=== PATIENT | female | born 1975 | race Caucasian/White ===

== ENCOUNTER → 2016-09-09 | Outpatient (CLI) | payer BC ==
[~2016-09-09] MED LIST: ASPIRIN 32325 MG/TAB PO; LOVENOX 8080 MG/0.8 SQ; MOTRIN 600600 MG/TAB PO; PERCOCET 325 MG1 TA2 PO; TYLENOL 325MG325 MG PO; XARELTO15 MG PO
== END ==
LOC: COL.VAS 07:38
DX: I82.512 Chronic embolism and thrombosis of left femoral vein (principal); I82.532 Chronic embolism and thrombosis of left popliteal vein; M79.605 Pain in left leg; M79.89 Other specified soft tissue disorders

== ENCOUNTER → 2017-12-08 | Outpatient (CLI) | payer BC | LOC: COL.VAS 13:14 | DX: I82.532 Chronic embolism and thrombosis of left popliteal vein (principal) ==

== ENCOUNTER 2018-05-10 12:09 | Day surgery (SDC) | payer BC ==
[2018-05-10] VITALS (9 sets, daily range): BP systolic 110–125; BP diastolic 57–70; PULSE 70–88; TEMP 97.6–98.4
[~2018-05-10] VITALS: Ht 160 cm; Wt 89.0 kg
[2018-05-10] MEDS ORDERED: EFFEXOR-XR150 MG PO (12:38)
[2018-05-10] MEDS ORDERED: NEURONTIN100 MG/CAP PO (12:38)
[2018-05-10] MEDS ORDERED: DESYREL 100MG100 MG PO (12:39)
[2018-05-10] MEDS ORDERED: MULTI VITAMINS1 TAB PO (12:39)
[2018-05-10 13:06] LABS: HEMATOCRIT 41.7 % (37.0-47.0); HEMOGLOBIN 13.5 g/dl (12.5-16.0); MEAN CELL VOLUME 96 fl (80.0-100.0); MEAN CORPUSCULAR HEMOGLOBIN 31 pg (27.0-31.0); MEAN CORPUSCULAR HGB CONC 32 g/dl (33.0-37.0); MEAN PLATELET VOLUME 10.4 fl (7.4-10.4); PLATELET COUNT 263 K/mm3 (130-400); RED BLOOD COUNT 4.35 M/mm3 (4.10-5.30)
[2018-05-10 13:07] LABS: PROTHROMBIN TIME 11.3 SECONDS (9.7-12.8)
[2018-05-10 13:11] LABS: ALBUMIN 4.2 gm/dL (3.5-5.0); BILIRUBIN,TOTAL 0.5 mg/dL (0.0-1.0); CALCIUM 8.6 mg/dL (8.4-10.2); CREATININE, serum 0.78 mg/dL (0.52-1.25); POTASSIUM 3.6 mmol/L (3.4-5.0); TOTAL PROTEIN 7.6 gm/dL (6.4-8.2)
== END 2018-05-10 19:30 | disposition home or self-care (01) ==
LOC: SDCO 12:09
PROVIDERS: Surgery
DX: K80.12 Calculus of gallbladder with acute and chronic cholecystitis without obstruction (principal); R94.5 Abnormal results of liver function studies; D68.59 Other primary thrombophilia; G62.9 Polyneuropathy, unspecified; Z90.710 Acquired absence of both cervix and uterus; Z88.8 Allergy status to other drugs, medicaments and biological substances; Z79.01 Long term (current) use of anticoagulants; Z86.718 Personal history of other venous thrombosis and embolism; Z86.711 Personal history of pulmonary embolism; Z83.3 Family history of diabetes mellitus; Z80.3 Family history of malignant neoplasm of breast; Z82.49 Family history of ischemic heart disease and other diseases of the circulatory system
CPT/HCPCS: J0690; J1100; J1650; J1885; J2405; J2704; J2710; J3010; J7120; Q9967

== ENCOUNTER → 2019-04-26 | Outpatient (CLI) | payer BC ==
[~2019-04-26] MED LIST changes: +DESYREL 100MG100 MG PO; +EFFEXOR-XR150 MG PO; +MULTI VITAMINS1 TAB PO; +NEURONTIN100 MG/CAP PO
[2019-04-26 15:27] LABS: BASO % 0.5 % (0.0-2.0); EOS % 0.1 % (0-4.0); GRAN # 4.5 (1.4-6.5); HEMATOCRIT 41.2 % (37.0-47.0); HEMOGLOBIN 13.2 g/dl (12.5-16.0); LYMPH # 2.3 (1.2-3.4); LYMPH % 31.1 % (20.0-51.0); MEAN CELL VOLUME 95 fl (80.0-100.0); MEAN CORPUSCULAR HEMOGLOBIN 30 pg (27.0-31.0); MEAN CORPUSCULAR HGB CONC 32 g/dl (33.0-37.0); MEAN PLATELET VOLUME 9.9 fl (7.4-10.4); MONO # 0.5 (0.1-0.6); MONO % 7.2 % (1.7-9.3); PLATELET COUNT 286 K/mm3 (130-400); RED BLOOD COUNT 4.35 M/mm3 (4.10-5.30); REDCELL DISTRIBUTION WIDTH-CV 13.9 % (11.5-14.5)
[2019-04-26 15:36] LABS: ALANINE AMINOTRANSFERASE 13 U/L (9-52); ALKALINE PHOSPHATASE 73 U/L (50-136); ANION GAP 8 mmol/L (7-16); AST,SGOT 22 U/L (15-37); BILIRUBIN,TOTAL 0.2 mg/dL (0.0-1.0); BLOOD UREA NITROGEN 13 mg/dL (7-17); CALCIUM 9.6 mg/dL (8.4-10.2); CARBON DIOXIDE 30 mmol/L (22-30); CHLORIDE 99 mmol/L (98-107); CREATININE, serum 0.72 (0.52-1.25); GLUCOSE 96 mg/dL (74-106); POTASSIUM 3.9 mmol/L (3.4-5.0); SODIUM 136 mmol/L (137-145)
[2019-04-26 15:52] LABS: TROPONIN-I < 0.012 ng/mL (0.000-0.035)
[2019-04-26 16:07] LABS: THYROID STIMULATING HORMONE 0.877 uIU/mL (0.465-4.680)
== END ==
LOC: COL.RAD 14:27
PROVIDERS: Internal Medicine
DX: R07.89 Other chest pain (principal)
CPT/HCPCS: Q9967

== ENCOUNTER → 2019-06-21 | Outpatient (CLI) | payer BC | LOC: MC.RAD 04-05 15:00 | DX: Z12.31 Encounter for screening mammogram for malignant neoplasm of breast (principal); N64.89 Other specified disorders of breast ==

== ENCOUNTER → 2019-06-28 | Outpatient (CLI) | payer BC | LOC: MC.RAD 06-27 09:15 | DX: N64.89 Other specified disorders of breast (principal); N63.21 Unspecified lump in the left breast, upper outer quadrant | CPT/HCPCS: G0279 ==

== ENCOUNTER 2019-08-05 22:40 | Emergency (ER) | payer BC ==
[~2019-08-05] VITALS: Ht 160 cm; Wt 86.4 kg
[2019-08-05 22:43] VITALS: TEMP 96.4
[2019-08-05] MEDS ORDERED: XANAX 0.5MG0.5 MG PO (22:50)
[2019-08-05 23:40] LABS: BASO # 0.1 (0.0-0.2); BASO % 0.4 % (0.0-2.0); EOS % 0.3 % (0-4.0); GRAN # 9.8 (1.4-6.5); GRAN % 71.1 % (42.2-75.2); HEMATOCRIT 43.8 % (37.0-47.0); HEMOGLOBIN 14.7 g/dl (12.5-16.0); LYMPH % 21.9 % (20.0-51.0); MEAN CELL VOLUME 91 fl (80.0-100.0); MEAN CORPUSCULAR HEMOGLOBIN 30 pg (27.0-31.0); MEAN CORPUSCULAR HGB CONC 34 g/dl (33.0-37.0); MEAN PLATELET VOLUME 10.3 fl (7.4-10.4); MONO # 0.8 (0.1-0.6); PLATELET COUNT 264 K/mm3 (130-400); RED BLOOD COUNT 4.84 M/mm3 (4.10-5.30); REDCELL DISTRIBUTION WIDTH-CV 13.5 % (11.5-14.5)
[2019-08-06 00:14] LABS: ALANINE AMINOTRANSFERASE 39 U/L (9-52); ALBUMIN 4.3 gm/dL (3.5-5.0); ALKALINE PHOSPHATASE 88 U/L (50-136); ANION GAP 9 mmol/L (7-16); AST,SGOT 90 U/L (15-37); BILIRUBIN,TOTAL 0.5 mg/dL (0.0-1.0); BLOOD UREA NITROGEN 15 mg/dL (7-17); C-REACTIVE PROTEIN 1.2 mg/dL (0.0-0.9); CALCIUM 8.9 mg/dL (8.4-10.2); CARBON DIOXIDE 25 mmol/L (22-30); CHLORIDE 106 mmol/L (98-107); GLUCOSE 111 mg/dL (74-106); LIPASE 59 U/L (23-300); POTASSIUM 3.4 mmol/L (3.4-5.0); SODIUM 140 mmol/L (137-145); TOTAL PROTEIN 7.3 gm/dL (6.4-8.2)
[2019-08-06 00:17] LABS: INR 1.4 (0.8-3.0); PROTHROMBIN TIME 16.2 SECONDS (9.7-12.8)
[2019-08-06 00:20] LABS: PARTIAL THROMBOPLASTIN TIME 33.1 SECONDS (26.0-37.0)
[2019-08-06 00:23] LABS: TROPONIN-I < 0.012 ng/mL (0.000-0.035)
[2019-08-06 01:30] LABS: COLLECTION METHOD CLEAN CATCH
[2019-08-06 01:35] LABS: MUCOUS Present /lpf; PH 5 (5-8); URINE APPEARANCE Clear; URINE BACTERIA None Seen /hpf; URINE BILIRUBIN Negative (NEGATIVE); URINE BLOOD Negative (NEGATIVE); URINE COLOR Yellow; URINE GLUCOSE Negative (NEGATIVE); URINE KETONE Trace (NEGATIVE); URINE LEUKOCYTE ESTERASE Negative (NEGATIVE); URINE NITRATE Negative (NEGATIVE); URINE PROTEIN(semi-quant) Negative (NEGATIVE); URINE RBC 0-2 /hpf; URINE UROBILINOGEN Negative (NEGATIVE)
[2019-08-06 03:30] LABS: ALANINE AMINOTRANSFERASE 77 U/L (9-52); ALBUMIN 3.8 gm/dL (3.5-5.0); ALKALINE PHOSPHATASE 84 U/L (50-136); AST,SGOT 119 U/L (15-37); LIPASE 45 U/L (23-300); TOTAL PROTEIN 6.5 gm/dL (6.4-8.2)
[2019-08-06 03:39] LABS: BILIRUBIN UNCONJUGATED 0.2 mg/dL (0.0-1.1); BILIRUBIN,TOTAL 0.3 mg/dL (0.0-1.0)
[2019-08-06 03:42] LABS: TROPONIN-I 3 HR POST INITIAL < 0.012 ng/mL (0.000-0.034)
[2019-08-06] MEDS ORDERED: PROTONIX 40MG T40 MG PO (04:07)
[2019-08-06 04:15] VITALS: BP 115/67; PULSE 69
== END 2019-08-06 04:26 | disposition home or self-care (01) ==
LOC: COL.ER 22:40
PROVIDERS: Emergency Medicine
DX: K29.70 Gastritis, unspecified, without bleeding (principal); R07.89 Other chest pain; Z79.01 Long term (current) use of anticoagulants; Z90.89 Acquired absence of other organs; Z90.710 Acquired absence of both cervix and uterus; Z86.711 Personal history of pulmonary embolism; Z86.718 Personal history of other venous thrombosis and embolism
CPT/HCPCS: J1170; J2405; J7030; Q9967

== ENCOUNTER → 2019-08-18 | Outpatient (CLI) | payer BC ==
[~2019-08-18] MED LIST changes: +PROTONIX 40MG T40 MG PO; +XANAX 0.5MG0.5 MG PO
== END ==
LOC: COL.RAD 09:21
DX: R74.8 Abnormal levels of other serum enzymes (principal); Z90.49 Acquired absence of other specified parts of digestive tract

== ENCOUNTER → 2019-10-20 | Outpatient (CLI) | payer BC | LOC: BHSO 12:49 | DX: F41.0 Panic disorder [episodic paroxysmal anxiety] (principal) ==

== ENCOUNTER → 2019-11-10 | Outpatient (CLI) | payer BC | LOC: MC.RAD 12:52 | DX: N64.4 Mastodynia (principal) ==

== ENCOUNTER → 2019-12-18 | Outpatient (CLI) | payer BC | LOC: COL.VAS 10:26 | DX: M79.89 Other specified soft tissue disorders (principal); Z86.718 Personal history of other venous thrombosis and embolism ==

== ENCOUNTER 2020-02-13 20:08 | Emergency (ER) | payer SELFPAY ==
[2020-02-13] MEDS ORDERED: LASIX 20MG TABL20 MG PO (20:40)
[2020-02-13] MEDS ORDERED: AMOXICILLIN 8751 TAB PO (20:42)
[2020-02-13 20:54] VITALS: BP 126/78; PULSE 66; TEMP 97
== END 2020-02-13 20:56 | disposition home or self-care (01) ==
LOC: COL.ER 20:08
DX: S61.411A Laceration without foreign body of right hand, initial encounter (principal); F17.210 Nicotine dependence, cigarettes, uncomplicated; Z23 Encounter for immunization; W54.0XXA Bitten by dog, initial encounter

== ENCOUNTER → 2020-07-16 | Outpatient (CLI) | payer OTHER ==
[~2020-07-16] MED LIST changes: +AMOXICILLIN 8751 TAB PO; +LASIX 20MG TABL20 MG PO
== END ==
LOC: COL.RAD 11:55
DX: R06.00 Dyspnea, unspecified (principal); Z86.711 Personal history of pulmonary embolism
CPT/HCPCS: Q9967

== ENCOUNTER 2021-01-02 14:50 | Outpatient (RCR) | payer OTHER | END 2021-03-27 | disposition still patient (30) | LOC: WSOH | DX: S39.012A Strain of muscle, fascia and tendon of lower back, initial encounter (principal); E54 Ascorbic acid deficiency; Y99.0 Civilian activity done for income or pay; Z98.890 Other specified postprocedural states ==

== ENCOUNTER → 2021-10-06 | Outpatient (CLI) | payer OTHER | LOC: COL.RAD 06:59 | DX: D68.59 Other primary thrombophilia (principal); G44.52 New daily persistent headache (NDPH) | CPT/HCPCS: Q9967 ==

== ENCOUNTER → 2021-12-29 | Outpatient (CLI) | payer OTHER | LOC: MC.RAD 08:41 | DX: Z12.31 Encounter for screening mammogram for malignant neoplasm of breast (principal); N64.89 Other specified disorders of breast ==

== ENCOUNTER → 2021-12-31 | Outpatient (CLI) | payer OTHER | LOC: MC.RAD 14:00 | DX: N64.89 Other specified disorders of breast (principal) ==

== ENCOUNTER → 2022-04-03 | Outpatient (CLI) | payer OTHER | LOC: MC.RAD 07:30 | DX: N64.4 Mastodynia (principal) ==

== ENCOUNTER 2023-05-18 11:54 | Inpatient (IN) | payer BC, OTHER ==
[~2023-05-18] VITALS: Ht 236.2 cm; Wt 91.7 kg
[~2023-05-18 11:54] MED LIST changes: -XARELTO15 MG PO; +XARELTO20 MG PO
[2023-06-09] VITALS (16 sets, daily range): BP systolic 97–137; BP diastolic 52–74; PULSE 80–102; TEMP 97.5–98.9
[2023-06-09] MEDS ORDERED: PRISTIQ 50 MG T50 MG PO (06:01)
--- NOTE | 2023-06-09 06:20 | NUR ---
The patient ambulated back to [place] [address] indendently using a steady gait and appeared to tolerate the activity well. Vital signs obtained. Consent signed. Assessment completed. Home medications reconcilled. 18G IV started in left wrist with one stick, LR infusing without difficulty. Call light is within reach. Warm blanket provided. at bedside. Denies any further needs at this time.
--- NOTE | 2023-06-09 12:00 | NUR ---
Patient up from surgery at 1035 to room 324. Patient drowsy, arousable upon arrival. Vital signs monitored postop. C/O abdominal pain upon waking up, PRNs given as ordered. Weaning oxygen, now on 1L via NC. in the room with patient. Tolerating water, educated patient on diet. Lazaro in place, draining clear yellow urine. Bed in lowest position with call light within reach. Denies further needs at this time.
--- NOTE | 2023-06-09 13:38 | NUR ---
Initial visit; Patient thanked Ground Transportation Operator for looking in on her though declined Spiritual Care.
--- NOTE | 2023-06-09 17:19 | NUR ---
Patient tolerating food well, no nausea/vomiting/increased pain after eating. Diet advanced. Able to ambulate to the recliner, standby assist, steady on feet. Sitting up in recliner. Pain medication provided for abdominal pain. Call light within reach, pt denies further needs at this time.
--- NOTE | 2023-06-09 21:00 | NUR ---
PT IN BED, PREVIOUSLY UP IN CHAIR. PT DROWSY, REPORTS PAIN TO ABD 2/10. ABD WITH LAP SITES X4 WITH BANDAIDS, SM TRANSVERSE INCISION WITH GAUZE, D/I. HAS IVF TO LT HAND INFUSING WITHOUT PROBLEM. HAS PÉREZ TO BSD WITH YELLOW URINE. DENIES PASSING GAS, BOWEL SOUNDS NOTED.
[2023-06-10] VITALS (12 sets, daily range): BP systolic 97–125; BP diastolic 56–68; PULSE 69–93; TEMP 97.5–98.8
--- NOTE | 2023-06-10 03:23 | NUR ---
PT REPORTS PAIN TO ABD 6/10, OXYCODONE 5MG PO GIVEN.
--- NOTE | 2023-06-10 04:20 | NUR ---
Pt awake, wanting hearn removed. Emptied 850cc from bag, deflated balloon and removed catheter without problem.
--- NOTE | 2023-06-10 06:00 | NUR ---
PT HAS BEEN UP IN ROOM, INT TO LT HAND. HAS VOIDED SINCE PÉREZ REMOVED.
[2023-06-10 06:12] LABS: CALCIUM 8.6 mg/dL (8.4-10.2); CREATININE, serum 0.73 mg/dL (0.57-1.11); POTASSIUM 4.1 mmol/L (3.5-4.5)
[2023-06-10 06:23] LABS: BASO % 0.2 % (0.0-2.0); GRAN # 8.5 K/mm3 (1.4-6.5); GRAN % 75.6 % (42.2-75.2); HEMATOCRIT 37.8 % (37.0-47.0); HEMOGLOBIN 12.2 g/dl (12.5-16.0); LYMPH # 1.8 K/mm3 (1.2-3.4); LYMPH % 16.4 % (20.0-51.0); MEAN CELL VOLUME 93 fl (80.0-100.0); MEAN CORPUSCULAR HEMOGLOBIN 30 pg (27-31); MEAN CORPUSCULAR HGB CONC 32 g/dl (33.0-37.0); MONO # 0.8 K/mm3 (0.1-0.6); MONO % 7.4 % (1.7-9.3); PLATELET COUNT 252 K/mm3 (130-400); RED BLOOD COUNT 4.05 M/mm3 (4.10-5.30); REDCELL DISTRIBUTION WIDTH-CV 14.2 % (11.5-14.5)
--- NOTE | 2023-06-10 08:36 | NUR ---
PATIENT ALERT AND ORIENTED X4. VSS. PATIENT HERE FOR RIGHT SUMA HEMICOLECTOMY. LAPS X4, CDI WITH BANDAIDS. ONE LOW TRANSVERSE CDI WITH GAUZE/TAPE. IV TO LEFT HAND INT, FLUSHES WELL. PATIENT DENIES ANY PAIN AT THIS TIME. TOLERATED BREAKFAST. PATIENT REPORTS ONE LG BM THIS MORNING. PATIENT RESTING IN BED, CALL LIGHT IN REACH. NO FURTHER NEEDS AT THIS TIME.
--- NOTE | 2023-06-10 09:54 | NUR ---
dairy feed worker met with patient to discuss discharge planning. Patient lives in [place] with her Erick [phone]. Patient sees Dr. Gulshan Rockwell for primary care and obtains medications from [facility] with no difficulties. Patient does not use any medical equipment and is independent with ADLs. Patient does not have DPOA-HC and was not interested in creating one at this time. Patient legal next of kin is her Erick. Another point of contact is her daughter Peg [phone]. Discharge Plan: Home
--- NOTE | 2023-06-10 19:45 | NUR ---
Assessment complete. A&Ox4. Denies pain/nausea/shortness of breath. VS stable. Up to shower this shift. Bandaids removed from lap sites due to being wet-edges well approximated-no drainage noted. Low transverse incision clean/dry/intact-no drainage noted. IV to left hand flushes without difficulty. Plan of care discussed for this shift to include meds/pain control/calling for questions/concerns. Verbalizes understanding. Call light in reach. Will monitor.
--- NOTE | 2023-06-10 21:30 | NUR ---
Patient called stating she was very nauseas and in a lot of pain. This nurse to room and noted patient to be pale and diaphoretic sitting on toilet. States she thought she needed to have a BM but is just passing gas. Vitals taken- BP 107/62, pulse 76, resp 18, SpO2 98% on RA and temp 97.4. Zofran given per order. Patient back up to bathroom but only passed gas. States her pain level is 8/10 on pain scale to abdomen. Oxycodone given at this time. Patient states she is starting to feel better that she had a hot flash and that is what started this. Encouraged to call for any questions/concerns. Call light in reach. Will monitor.
--- NOTE | 2023-06-10 22:20 | NUR ---
Patient resting in bed comfortably. States she feesl a lot better and is no longer nauseated. Denies current needs. Call light in reach. Will monitor.
[2023-06-11 01:00] VITALS: BP_SYST 122
[2023-06-11 03:59] VITALS: BP 134/69; PULSE 74; TEMP 98.4
[2023-06-11 04:02] VITALS: BP_SYST 134
--- NOTE | 2023-06-11 04:22 | NUR ---
Patient up to bathroom at this time. C/O nausea/pain. Rating pain 9/10 on pain scale-described as intermittent sharp pains. Oxycodone given per dr dickey.
--- NOTE | 2023-06-11 06:04 | NUR ---
Patient rested off and on this shift. Received zofran/oxycodone x2 for pain and nausea. Patient rated pain 9/10 on pain scale and after discussing thinks nausea came due to level of pain. Encouraged to call when pain starts to increase rather than waiting. Verbalizes understanding. INT to left hand flushes without difficulty. Denies current needs. Call light in reach. Will monitor.,
[2023-06-11 07:24] VITALS: BP 106/53; PULSE 95; TEMP 98.2
[2023-06-11 09:04] VITALS: BP_SYST 106
--- NOTE | 2023-06-11 09:17 | NUR ---
Follow-up visit; Patient thanked Building Services Technician for looking in on her again wishing her well and offering God's healing presence. Patient doing well, being discharged today.
[2023-06-11] MEDS ORDERED: ROXICODONE 55 MG/TAB PO ×3 (11:17→15:21)
[2023-06-11] MEDS ORDERED: TYLENOL 500MG500 MG PO (11:17)
[2023-06-11 11:21] VITALS: BP 116/70; PULSE 77; TEMP 98.2
--- NOTE | 2023-06-11 12:16 | NUR ---
DISCHARGE INSTRUCTIONS REVIEWED WITH PT QUESTIONS ANSWERED. PT LEFT UNIT PER WHEEL CHAIR.
[2023-06-14] MEDS ORDERED: XARELTO15 MG PO (09:47)
== END 2023-06-11 12:23 | disposition home or self-care (01) | DRG 330 ==
LOC: INPTSU 06-09 05:41 → SURG 06-09 07:30
PROVIDERS: ADMIT Surgery
PROC: 8E0W4CZ Robotic Assisted Procedure of Trunk Region, Percutaneous Endoscopic Approach (ICD-10-PCS; 2023-06-09)
PROC: 0DTF4ZZ Resection of Right Large Intestine, Percutaneous Endoscopic Approach (ICD-10-PCS; principal; 2023-06-09 07:30)
DX: K63.5 Polyp of colon (principal); D68.59 Other primary thrombophilia; Z86.718 Personal history of other venous thrombosis and embolism; Z86.711 Personal history of pulmonary embolism; Z90.49 Acquired absence of other specified parts of digestive tract; Z90.710 Acquired absence of both cervix and uterus; Z79.01 Long term (current) use of anticoagulants; Z88.8 Allergy status to other drugs, medicaments and biological substances
CPT/HCPCS: A4314; A9284; J0690; J1100; J1170; J1836; J1885; J2405; J2704; J3010; J7120

== ENCOUNTER 2023-06-13 08:29 | Emergency (ER) | payer BC, OTHER ==
[~2023-06-13] VITALS: Ht 160 cm; Wt 91.4 kg
[~2023-06-13 08:29] MED LIST changes: +PRISTIQ 50 MG T50 MG PO; +ROXICODONE 55 MG/TAB PO; +TYLENOL 500MG500 MG PO
[2023-06-13 08:34] VITALS: TEMP 97.8
[2023-06-13] MEDS ORDERED: XARELTO15 MG PO ×2 (09:34)
[2023-06-13 09:50] VITALS: BP 106/68; PULSE 89
[2023-06-14] MEDS ORDERED: XARELTO15 MG PO (09:47)
== END 2023-06-13 11:14 | disposition home or self-care (01) ==
LOC: COL.ER 08:29
DX: I82.401 Acute embolism and thrombosis of unspecified deep veins of right lower extremity (principal); Z91.040 Latex allergy status; Z79.01 Long term (current) use of anticoagulants

== ENCOUNTER → 2023-09-30 | Outpatient (CLI) | payer BC, OTHER ==
[~2023-09-30] MED LIST changes: +Iohexol 300 - 100 ML VIAL IV ONE; +NS 100 ML IV SCH; +XARELTO15 MG PO
== END ==
LOC: COL.RAD 07:23
DX: I82.512 Chronic embolism and thrombosis of left femoral vein (principal); I26.99 Other pulmonary embolism without acute cor pulmonale; R07.89 Other chest pain
CPT/HCPCS: Q9967

== ENCOUNTER → 2024-03-23 | Outpatient (CLI) | payer BC, OTHER ==
[~2024-03-23] MED LIST changes: -Iohexol 300 - 100 ML VIAL IV ONE; -NS 100 ML IV SCH
== END ==
LOC: MC.RAD 08:16
DX: Z12.31 Encounter for screening mammogram for malignant neoplasm of breast (principal); N64.89 Other specified disorders of breast